=== PATIENT | female | born 1985 | race Caucasian/White ===

== ENCOUNTER 2019-01-28 08:14 | Emergency (ER) | payer BC, OTHER ==
[2019-01-28 08:31] VITALS: BP 115/80
[2019-01-28] MEDS ORDERED: predniSONE TAB* 20 MG PO ONE (08:58)
--- NOTE | 2019-01-28 09:03 | UC ---
Hand/Wrist HPI - HPI Summary HPI Summary: 33-year-old woman comes in with a chief complaint of swelling of the left ring finger. 2 days ago she gets stung by a wasp on the pad of the left ring finger. Initially there was minimal swelling over time the swelling is gotten worse. She has 2 rings on that finger. She's been unable to get the rings off. With the swelling there is some decreased range of motion of the finger. The finger is not painful there is no numbness. - History Of Current Complaint Chief Complaint: UCUpperExtremity Stated Complaint: SWELLEN FINGER Time Seen by Provider: 01/28/19 08:52 Pain Intensity: 2 - Allergies/Home Medications Allergies/Adverse Reactions: Allergies Allergy/AdvReac Type Severity Reaction Status Date / Time No Known Allergies Allergy Verified 01/28/19 08:31 Home Medications: Home Medications Norgestimate-Ethinyl Estradiol [Ortho-Cyclen] 1 tab PO 01/28/19 [History] diphenhydrAMINE HCl [Benadryl Allergy] 50 mg PO 01/28/19 [History] PMH/Surg Hx/FS Hx/Imm Hx Previously Healthy: Yes - Surgical History Surgical History: None - Family History Known Family History: Positive: Non-Contributory - Social History Alcohol Use: Occasionally Substance Use Type: None Smoking Status (MU): Never Smoked Tobacco Review of Systems All Other Systems Reviewed And Are Negative: Yes Constitutional: Positive: Negative Skin: Positive: Other - SEE HPI Eyes: Positive: Negative ENT: Positive: Negative Respiratory: Positive: Negative Cardiovascular: Positive: Negative Gastrointestinal: Positive: Negative Motor: Positive: Decreased ROM Neurovascular: Positive: Negative Musculoskeletal: Positive: Other: - SEE HPI Neurological: Positive: Negative Psychological: Positive: Negative Is Patient Immunocompromised?: No Physical Exam Triage Information Reviewed: Yes Appearance: Well-Appearing, No Pain Distress, Well-Nourished Vital Signs: Initial Vital Signs Temp 98.4 F 01/28/19 08:27 Pulse 60 01/28/19 08:27 Resp 18 01/28/19 08:27 BP 115/80 01/28/19 08:27 Pulse Ox 98 01/28/19 08:27 Vital Signs Reviewed: Yes Eye Exam: Normal Eyes: Positive: Conjunctiva Clear Neck: Positive: Supple Respiratory: Positive: No respiratory distress Musculoskeletal: Positive: Other: - Left ring finger has 2 rings on it. It swollen distal to the rings. Minimal erythema it is not hot to touch. Normal capillary refill normal sensation. Mild decreased flexion secondary to the swelling. Neurological: Positive: Alert Psychological: Positive: Age Appropriate Behavior Skin: Positive: Other - Left ring finger has 2 rings on it. It swollen distal to the rings. Minimal erythema it is not hot to touch. Normal capillary refill normal sensation. Mild decreased flexion secondary to the swelling. Hand/Wrist Course/Dx - Course Course Of Treatment: At this time the left ring finger has normal sensation normal capillary refill. Overall plan is prednisone and Benadryl elevation ice. The patient declined having her rings cut off at this visit. We discussed signs of decreased circulation and informed her that if she had any worsening then she would need to have the rings cut off which can be done either here or the emergency department. - Differential Dx/Diagnosis Provider Diagnosis: Swelling of left ring finger, Insect bite of left ring finger Discharge - Sign-Out/Discharge Documenting (check all that apply): Patient Departure All imaging exams completed and their final reports reviewed: No Studies - Discharge Plan Condition: Stable Disposition: HOME Prescriptions: predniSONE TAB* [Deltasone 20 MG TAB*] 40 mg PO DAILY PRN #8 tab PRN Reason: Allergy Symptoms Patient Education Materials: Insect Bite or Sting (ED) Referrals: [facility] – [place] [facility] [Outside] Additional Instructions: FOLLOW UP WITH YOUR DOCTOR IF NOT COMPLETELY IMPROVED. GET YOUR RINGS CUT OFF IF YOU HAVE ANY PROBLEMS WITH YOUR FINGER; PAIN, NUMBNESS , LOSS OF CIRCULATION, CHANGE IN COLOR. GET RECHECKED SOONER IF YOUR CONDITION WORSENS OR ANY QUESTIONS OR CONCERNS. - Billing Disposition and Condition Condition: STABLE Disposition: Home
== END 2019-01-28 09:05 | disposition home or self-care (01) ==
LOC: UCEAST 08:14
DX: S60.465A Insect bite (nonvenomous) of left ring finger, initial encounter (principal); W57.XXXA Bitten or stung by nonvenomous insect and other nonvenomous arthropods, initial encounter; Y92.9 Unspecified place or not applicable
CPT/HCPCS: 99212; G0463; J7512